=== PATIENT | female | born 1990 ===

== ENCOUNTER 2016-10-09 12:04 | Emergency (ER) | payer SELFPAY ==
[2016-10-09] MEDS ORDERED: TYLENOL #3 PO ONE (16:18)
--- NOTE | 2016-10-09 16:22 | Emergency Department Report ---
ED General Adult HPI - General Chief complaint: Pain General Stated complaint: 19WKA BODY ACHES Time Seen by Provider: 10/09/16 16:10 Source: patient Mode of arrival: Ambulatory Limitations: No Limitations - History of Present Illness Initial comments: 26-year-old -[place] female 5. Para 4 with one miscarriage she is 19 weeks comes in for complaint of body aches and back pain. Patient denies any vaginal bleeding or abdominal pain no fever no chills no nausea no vomiting denies any trauma or hematuria. Patient reports that she did not talk to her OB. Patient did not take anything for the pain. Patient has no other medical history. -: Sudden - Related Data Previous Rx's Medication Instructions Recorded Last Taken Type Vit-Fe Fumar-FA [ 1 tab PO QDAY #90 tablet 04/17/15 04/29/15 09 :00 Rx Vitamin] Allergies Allergy/AdvReac Type Severity Reaction Status Date / Time No Known Allergies Allergy Verified 04/29/15 13:05 ED Review of Systems ROS: Stated complaint: 19WKA BODY ACHES Other details as noted in HPI Constitutional: denies: chills, fever Eyes: denies: eye pain, eye discharge, vision change ENT: denies: ear pain, throat pain Respiratory: denies: cough, shortness of breath, wheezing Cardiovascular: denies: chest pain, palpitations Gastrointestinal: denies: abdominal pain, nausea, diarrhea Genitourinary: dysuria Musculoskeletal: back pain (lower back) ED Past Medical Hx - Past Medical History Previous Medical History?: Yes Additional medical history: Graves Disease, Vaginal delivery x 4, 1 miscarriage - Surgical History Past Surgical History?: No - Social History Smoking Status: Never Smoker Substance Use Type: Prescribed - Medications Home Medications: Home Medications Medication Instructions Recorded Confirmed Last Taken Type Vit-Fe Fumar-FA [ 1 tab PO QDAY #90 tablet 04/17/15 04/29/15 09:00 Rx Vitamin] ED Physical Exam - General Limitations: No Limitations General appearance: alert, in no apparent distress - Head Head exam: Present: atraumatic, normocephalic - Eye Eye exam: Present: normal appearance, PERRL, EOMI - ENT ENT exam: Present: mucous membranes moist - Back Exam Back exam: Present: normal inspection, full ROM. Absent: CVA tenderness (R), CVA tenderness (L), muscle spasm - Neurological Exam Neurological exam: Present: alert, oriented X3, normal gait - Psychiatric Psychiatric exam: Present: normal affect, normal mood - Skin Skin exam: Present: warm, dry, intact, normal color ED Course Vital Signs 10/09/16 10/09/16 12:40 16:44 Temperature 98.1 F Pulse Rate 89 Respiratory 20 18 Rate Blood Pressure 105/67 O2 Sat by Pulse 100 Oximetry - Reevaluation(s) Reevaluation #1: 10/09/16 17:41 Patient's been reevaluated by this provider. Patient reports that she still suffering from back pain UA was negative for urinary tract infection. We will order an ultrasound for further evaluation. Discuss patient. ED Medical Decision Making - Radiology Data Radiology results: report reviewed, image reviewed FINAL REPORT PROCEDURE: US OB T gt; = 14 WEEKS FETUS TECHNIQUE: Real-time transabdominal sonography of the uterus, placenta, amniotic fluid, adnexa, and fetus was performed with image documentation. Measurements were obtained to determine age/size. M-mode Doppler was used to document heartbeat. CPT 63739 HISTORY: 19 weeks. Low back pain with negative urinalysis. COMPARISON: No prior studies are available for comparison. FINDINGS: LMP: 05/26/2016. Clinical age: 19 weeks 3 days. EDC: 03/02/2017. GENERAL: IUP: Single living intrauterine . Position: Breech. Placental position: Anterior, grade 0, without previa. Amniotic fluid volume: Normal. MATERNAL: Uterus: Within normal limits. Cervical length: 3.1 cm. Internal Os: Closed. FETUS: Heart rate and rhythm: 142 BPM, Regular. anatomic survey: Normal. Stomach, brain, kidneys, bladder, diaphragm, four-chamber heart, three-vessel cord, cord insertion, and spine visualized. MEASUREMENTS: BPD: 4.49 centimeters, 19 weeks 4 days HC: 17.62 centimeters, 20 weeks 1 day AC: 14.8 centimeters, 20 weeks 1 day FL: 3.17 centimeters, 19 weeks 6 days HC/AC: 1.19 Cephalic index: 77 Mean Gestational Age (composite criteria): 20 weeks 0 days. Estimated Weight: 326 grams. Interval growth: Appropriate. Estimated Due Date (earliest scan): 02/26/2017. IMPRESSION: Single intrauterine gestation at 20 weeks 0 days. Estimated due date: 02/26/2017. Normal survey with appropriate growth. Transcribed By: SUNNI Dictated By: CHENCHO MILES MD Electronically Authenticated By: CHENCHO MILES MD Signed Date/Time: 10/09/162058 DD/ 58 TD/TT: 10/09/162058 - Medical Decision Making Patient's been evaluated by this provider in fast track. Based on history and exam we will send out a urinalysis with urine culture we will treat patient's pain here in fast track for Tylenol 3. Patient verbalized understanding. Discussed with the patient that she will need to follow up with her OB provider. Your urinalysis was negative for any infection, her ultrasound was negative. A problems with the baby. Because you're limits your medication for pain. Advised to follow-up with her MANAGER HI. He can take Tylenol every 4-6 hours for pain. Critical care attestation.: If time is entered above; I have spent that time in minutes in the direct care of this critically ill patient, excluding procedure time. ED Disposition Clinical Impression: Back pain Qualifiers: Back pain location: low back pain Chronicity: acute Back pain laterality: bilateral Sciatica presence: without sciatica Qualified Code(s): M54.5 - Low back pain Qualifiers: Weeks of gestation: 20 weeks Qualified Code(s): Z3A.20 - 20 weeks gestation of Disposition: DISCHARGED TO HOME OR SELFCARE Is pt being admited?: No Does the pt Need Aspirin: No Condition: Stable Instructions: Back Pain (ED), Low Back Strain (ED), (ED) Additional Instructions: Very important. Call your MANAGER [facility] provider to see if they'll be willing to order anything else for pain. At this point Tylenol is the only medication at that ER providers recommended. Referrals: PRIMARY CAREMD [Primary Care Provider] - 3-5 Days Forms: Accompanied Note
[2016-10-09 16:35] LABS: Bilirubin,Urine NEG (Negative); Blood,Urine NEG (Negative); Ketones,Urine NEG (Negative); Leukocyte Esterase,Urine NEG (Negative); Mucus,Urine 2+ /HPF; Nitrite,Urine NEG (Negative); Protein,Urine <15 mg/dL mg/dL (Negative); Urobilinogen,Urine < 2.0 mg/dL (<2.0); WBC,Urine < 1.0 /HPF (0.0-6.0)
--- NOTE | 2016-10-09 20:02 | Ultrasound Report ---
FINAL REPORT PROCEDURE: US OB \T\gt; = 14 WEEKS FETUS TECHNIQUE: Real-time transabdominal sonography of the uterus, placenta, amniotic fluid, adnexa, and fetus was performed with image documentation. Measurements were obtained to determine age/size. M-mode Doppler was used to document heartbeat. CPT 97791 HISTORY: 19 weeks. Low back pain with negative urinalysis. COMPARISON: No prior studies are available for comparison. FINDINGS: LMP: 05/26/2016. Clinical age: 19 weeks 3 days. EDC: 03/02/2017. GENERAL: IUP: Single living intrauterine . Position: Breech. Placental position: Anterior, grade 0, without previa. Amniotic fluid volume: Normal. MATERNAL: Uterus: Within normal limits. Cervical length: 3.1 cm. Internal Os: Closed. FETUS: Heart rate and rhythm: 142 BPM, Regular. anatomic survey: Normal. Stomach, brain, kidneys, bladder, diaphragm, four-chamber heart, three-vessel cord, cord insertion, and spine visualized. MEASUREMENTS: BPD: 4.49 centimeters, 19 weeks 4 days HC: 17.62 centimeters, 20 weeks 1 day AC: 14.8 centimeters, 20 weeks 1 day FL: 3.17 centimeters, 19 weeks 6 days HC/AC: 1.19 Cephalic index: 77 Mean Gestational Age (composite criteria): 20 weeks 0 days. Estimated Weight: 326 grams. Interval growth: Appropriate. Estimated Due Date (earliest scan): 02/26/2017. IMPRESSION: Single intrauterine gestation at 20 weeks 0 days. Estimated due date: 02/26/2017. Normal survey with appropriate growth.
[2016-10-09 21:22] VITALS: BP 104/68
== END 2016-10-09 21:22 | disposition home or self-care (01) ==
LOC: ED 12:04
DX: O26.892 Other specified pregnancy related conditions, second trimester (principal); M54.5 Low back pain; O99.282 Endocrine, nutritional and metabolic diseases complicating pregnancy, second trimester; E05.00 Thyrotoxicosis with diffuse goiter without thyrotoxic crisis or storm; Z3A.20 20 weeks gestation of pregnancy
CPT/HCPCS: 76805; 81001; 87086; 99284

== ENCOUNTER 2017-02-21 05:59 | Inpatient (IN) | payer MEDICAID ==
--- NOTE | 2017-02-21 06:32 | History and Physical Report ---
History of Present Illness Date of examination: 02/21/17 (pt arrived via EMS Delivered immediately in LDR by Dr.L Aly) Date of admission: 02/21/17 06:21 History of present illness: EDC Confirmation: 03/02/2017 Gestational Age: 23 4/7 weeks Past History : 6 Term Births: 1 Premature Births: 2 Living Children: 3 Para: 3 Mult. Births: 0 Prev : 0 Prev. attempt? 0 Aborta: 2 Elect. Ab: 1 Spont. Ab: 1 Ectopics: 0 # 1 Delivery date: 12/16/2008 Weeks Gestation: 36 Delivery type: Hours of labor: 10 Anesthesia type: epidural Delivery location: [place] Inf[facility] Sex: Male weight: 6-8 Name: Arleenmdroc # 2 Delivery date: 2011 Delivery type: EAB # 3 Delivery date: 04/20/2014 Weeks Gestation: 36 Delivery type: Hours of labor: 10 Anesthesia type: epidural Delivery location: [place] Infant Sex: Male weight: 5-8 Name: DJ # 4 Delivery date: 2014 Weeks Gestation: 12 Delivery type: SAB Delivery location: [facility] Comments: D&C # 5 Delivery date: 11/23/2015 Weeks Gestation: 38 labor: no Delivery type: Hours of labor: 10 Anesthesia type: none Delivery location: [place] Infant Sex: Male weight: 6-8 Name: Jenna Past Medical History: Saba (2011) Past Surgical History: D&C: (2014) D&C: (2011) Family History Summary: Other family member - Has No Family History of Ovarvian Cancer - Lupus - Entered On: 11/07/2016 Other family member - Has No Family History of Colon Cancer - Lupus - Entered On : 11/07/2016 Other family member - Has No Family History of Breast Cancer - Lupus - Entered On: 11/07/2016 Other family member - Has Family History of Diabetes - Lupus - Entered On: 2016 Other family member - Has Family History of CVA or Stroke - Lupus - Entered On: 11/07/2016 Other family member - Has Family History of Coronary Heart Disease - Lupus - Entered On: 11/07/2016 Social History: engaged Patient is single Risk Factors: Smoked Tobacco Use: Never smoker Drug use: no HIV high-risk behavior: low risk Alcohol use: no Past Medical History Surgery (Non-ob gyn physician assistant): D&C: (2014) D&C: (2011) Abnormal PAP: negative Uterine Anomaly: negative Social Hx: engaged Patient is single Infection History Hx of STD: none HIV Risk Eval: low risk Hepatitis B Risk Eval: low risk Partner hx. of genital herpes: no Genetic History Congenital Heart Defect: Mom: no Dad: no Jessica Disease: Mom: no Dad: no Thalassemia Mom: no Dad: no Neural Tube Defect Mom: no Dad: no Down's Syndrome Mom: no Dad: no Ronald-Sachs Mom: no Dad: no Sickle Cell Disease/Trait Mom: no Dad: no Hemophilia Mom: no Dad: no Muscular Dystrophy Mom: no Dad: no Cystic Fibrosis Mom: no Dad: no [place] Chorea Mom: no Dad: no Mental Retardation Mom: no Dad: no Fragile X Mom: no Dad: no Other Genetic/Chromosomal Disorder Mom: no Dad: no Child w/other defect Mom: no Dad: no Enviromental Exposures Xray Exposure: no Medication, drug, or alcohol use since LMP: yes Chemical/Other Exposure: no Exposure to Cat Liter: no Hx of Parvovirus (Fifth Disease): no Current Allergies (reviewed today): No known allergies Laboratory Results Date/Time Collected: 11/07/2016 Routine Urinalysis Leukocytes: negative Nitrite: negative Urobilinogen: negative Protein: negative Blood: negative Ketone: negative Bilirubin: negative Glucose: negative Urine HCG: positive [place] WM: 2+ WBCs, Clue Cells present, Yeast absent, Trichomonas absent Review of Systems See HPI General Denies fever, chills, sweats, anorexia, fatigue, weakness, malaise, weight loss and sleep disorder. Complains of amenorrhea and pelvic pain. Denies vaginal discharge, incontinence, dysuria, hematuria, urinary frequency, menorrhagia, abnormal vaginal bleeding, genital sores, decreased libido, painful periods, painful sex, urinary urgency, hot flashes, vaginal dryness, vaginal itching and vaginal odor. CV Denies chest pains, palpitations, syncope, dyspnea on exertion, orthopnea, PND and peripheral edema. Resp Denies cough, dyspnea at rest, excessive sputum, hemoptysis, wheezing and pleurisy. GI Denies nausea, vomiting, diarrhea, constipation, change in bowel habits, abdominal pain, melena, hematochezia, jaundice, gas/bloating, indigestion/ heartburn, dysphagia and odynophagia. Breast Denies left breast lump, right breast lump, nipple discharge, bloody discharge from nipple, breast pain, abnormal mammogram and breast enlargement. Psych Denies depression, anxiety, irritability and mood swings. PHYSICAL EXAM HEENT: normocephalic, no lesions or deformities Neck/Thyroid: Silghtly enlarged thyroid .Tatoo(s) are present Skin no significant abnormal lesions or rashes Chest: respiratory effort normal, clear to auscultation Breasts: skin/areolae normal, no masses, no nipple discharge, no erythema/warmth /tenderness, and axillae normal. .Tatoo(s) are present CV: regular, normal S1-S2, no murmur, no rub, no gallop Abdomen: normal bowel sounds, soft, nontender, no HSM Musculoskeletal: grossly normal ROM in joints, no joint tenderness or muscle weakness Neuro: no gross anomalities Extremities: no clubbing, cyanosis, or edema QUALITY SYSTEM MANAGER Exams Vulva/Vagina: normal appearance, yellow discharge, lesions. No evidence of cystocele or rectocele. Cervix: No lesions; no cervical motion tenderness Uterus: enlarged uterus 24-26 weeks in size Adnexae: Unable to palpate due to uterine size Rectovaginal: exam defered Past History - Obstetrical History Expected Date of Delivery: 03/02/17 Actual Gestation: 38 Week(s) 5 Day(s) : 6 Para: 3 Hx # Term Pregnancies: 1 Number of Pregnancies: 2 Spontaneous Abortions: 1 Induced : 1 Number of Living Children: 3 Medications and Allergies Allergies Allergy/AdvReac Type Severity Reaction Status Date / Time No Known Allergies Allergy Verified 04/29/15 13:05 Home Medications Medication Instructions Recorded Confirmed Last Taken Type Vit-Fe Fumar-FA [ 1 tab PO QDAY #90 tablet 04/17/15 04/29/15 09:00 Rx Vitamin] - Physical Exam Breasts: Positive: deferred Cardiovascular: Regular rate, Normal S1, Normal S2 Abdomen: Positive: normal appearance, soft, normal bowel sounds. Negative: distention, tenderness Vulva: both: normal Vagina: Positive: normal moisture. Negative: discharge Cervix: Negative: lesion, discharge Uterus: Positive: normal size, normal contour Adnexa: both: normal Anus/Rectum: Positive: normal perianal skin, heme negative. Negative: rectal mass, hemorrhoids Extremities: Deep Tendon Reflex Grade: Normal +2 Results All other labs normal. Laboratory Data-Patient Name: RENE GASPAR Test Date Result Blood Type 07/20/2016 O Rh 07/20/2016 positive Antibody Screen negative Rubella 07/20/2016 IMMUNE Serology (RPR) 02/02/2017 NR HBsAg 07/20/2016 negative Hemoglobin 11/30/2016 9.0 Hematocrit 11/30/2016 28.3 Platelets 07/20/2016 262 Chlamydia DNA 02/02/2017 Negative GC DNA/Culture 02/02/2017 Urine Culture Group B Strep cult Negative PAP HIV 02/02/2017 Negative AFP/Quad Screen Glucola Test 3hr GTT (Fasting) 1 hr 2 hr 3 hr [facility]-Patient Name:RENE GASPAR Test Date Result Varicella Ab Sickle Cell PPD Fibronectin Cystic Fibrosis Parvovirus TSH 11/30/2016 104.800 Free T4 11/30/2016 0.76 Hepatitis C ALT AST Uric Acid Creatinine 24 hr Urine Protein SOILA Assessment and Plan Pt arrived by EMS Precipitous delivery immediately upon arrival to unit. in attendance. Called urgently to unit. On my arrival pt w/o complaint placenta had del complete and intact. Please see delivery for complete details. Pt does have Graves disease and is on Synthroid 200mcg Will continue PP - Patient Problems (1) Precipitous delivery, delivered (current hospitalization) Onset Date: ~02/21/17 Current Visit: Yes Status: Acute (2) Graves disease Current Visit: Yes Status: Acute (3) Single live Current Visit: Yes Status: Acute
--- NOTE | 2017-02-21 06:44 | Procedure Note ---
OB Delivery Note - Delivery Date of Delivery: 02/21/17 Surgeon: HENRY ALY (delivery) Merchandising Consultant: RYDER MAYO Estimated blood loss: 300cc - Vaginal Delivery presentation: vertex Delivery position: OA Intrapartum events: other(please specify) (Graves Disease; precipitous delivery) Delivery induction: none Delivery monitor: none Route of delivery: Delivery placenta: spontaneous Delivery cord: nuchal cord, 3 umbilical vessels Episiotomy: none Delivery laceration: none Anesthesia: none Delivery comments: pt arrived by EMS Immediate delivery in LDR Del attended by Dr.L. Aly live born female over intact perineum. CAN X 1 reduced. Cord blood obt Placenta and membrane del complete and intact, 3 vessel cord. 9/9, EBL 300 , Wgt 6-3 Pitocin IVFs. Mom and baby remain LDR stable. Placenta to pathology due to maternal Graves Disease. - A at 1 minute: 8 at 5 minutes: 9 Gender: Female (wgt 6-3)
[2017-02-21] MEDS ORDERED: MINERAL OIL PO PRN (06:48)
[2017-02-21] MEDS ORDERED: PITOCin/NS 20 UNIT/1000ML DRIP 20 UNITS/1,000 ML BAG IV SCH (07:00)
[2017-02-21] MEDS ORDERED: LACTATED RINGERS 1,000 ML IV SCH (07:00)
[2017-02-21] MEDS ORDERED: SODIUM CHLORIDE FLUSH SYRINGE 10 ML IV PRN (07:30)
[2017-02-21] MEDS ORDERED: TYLENOL PO PRN (07:30)
[2017-02-21] MEDS ORDERED: TUCKS PAD TP PRN (07:30)
[2017-02-21] MEDS ORDERED: BENADRYL PO PRN (07:30)
[2017-02-21] MEDS ORDERED: ZOFRAN IV PRN (07:30)
[2017-02-21] MEDS ORDERED: PHENERGAN PO PRN (07:30)
[2017-02-21 07:45] LABS: Hematocrit 24.9 % (30.3-42.9); Hemoglobin 7.8 gm/dl (10.1-14.3); Mean Corpuscular HGB Conc 31 % (30-34); Mean Corpuscular Volume 76 fl (79-97); Platelet Count 217 K/mm3 (140-440); Red Cell Distribution Width 18.1 % (13.2-15.2); White Blood Count 12.3 K/mm3 (4.5-11.0)
[2017-02-21 07:47] LABS: Mean Corpuscular Hemoglobin 24 pg (28-32)
[2017-02-21] MEDS: MOTRIN PO SCH ×2 (09:00→17:19)
[2017-02-21] MEDS ORDERED: LANSINOH TP PRN (09:00)
[2017-02-21] MEDS ORDERED: NORCO 5/325 PO PRN (09:00)
[2017-02-21] MEDS ORDERED: DULCOLAX PR PRN (10:00)
[2017-02-21 16:59] LABS: Hematocrit 22.4 % (30.3-42.9); Hemoglobin 6.8 gm/dl (10.1-14.3)
[2017-02-21] MEDS: FEOSOL PO SCH (17:18)
[2017-02-21] MEDS ORDERED: MILK OF MAGNESIA PO PRN (22:00)
[2017-02-22] MEDS: FEOSOL PO SCH ×2 (00:06→11:14)
[2017-02-22] MEDS: MOTRIN PO SCH ×2 (00:06→05:49)
[2017-02-22] MEDS ORDERED: SYNTHROID PO SCH (06:00)
[2017-02-22] MEDS ORDERED: BOOSTRIX IM ONE (06:00)
--- NOTE | 2017-02-22 07:27 | Discharge Summary ---
Providers - Providers Date of Admission: 02/21/17 06:00 Date of discharge: 02/22/17 (pt desires d/c ) Attending physician: JACKELINE PELAEZ Primary care physician: JACKELINE PELAEZ Hospitalization Reason for admission: active labor Delivery: Episiotomy: none Laceration: none Incision: normal Other procedures: none complications: none Discharge diagnosis: IUP at term delivered baby: female Hospital course: uncomplicated pt w/o complaint VSS FF below umb Lochia small Perineum intact H&H 02/01, chronic anemia Pt is asymptomatic Doing well s/p vag delivery. P: d/c today with instructions Depo prior to d/c RX provided for po iron, colace, motrin Pt encouraged to increase dietary iron, hydration. RTO 6 weeks. Condition at discharge: Good Disposition: DC-01 TO HOME OR SELFCARE - Discharge Diagnoses (1) Precipitous delivery, delivered (current hospitalization) Status: Resolved Comment: rto 6 weeks for PP care (2) Graves disease Status: Acute Comment: cont medication as prescribed F/U with Campaign Assistant with in 4 weeks of delivery. Plan - Discharge Medications Prescriptions: Docusate Sodium [Colace] 100 mg PO BID PRN #60 capsule PRN Reason: Constipation Ferrous Sulfate [Feosol 325 MG tab] 325 mg PO BID #60 tablet Ibuprofen [Motrin 800 MG tab] 800 mg PO TID PRN #30 tablet PRN Reason: Pain - Provider Discharge Summary Activity: routine, no sex for 6 weeks, no heavy lifting 4 weeks, no strenuous exercise Diet: routine Instructions: routine Additional instructions: [] Smoking cessation referral if applicable(refer to patient education folder for contact #) [] Refer to [facility] Booklet Call your doctor immediately for: * Fever > 100.5 * Heavy vaginal bleeding ( >1 pad per hour) * Severe persistent headache * Shortness of breath * Reddened, hot, painful area to leg or breast * Drainage or odor from incision. * Keep incision clean and dry at all times and follow doctor's instructions regarding bathing/showering - Follow up plan Follow up: JACKELINE PELAEZ MD [Primary Care Provider] - 6 Weeks (Congratulations! Please call [phone] to schedule your visit in 6 weeks. Take medications as prescribed. Continue Levothyroxine medication as prescribed Follow up with Campaign Assistant with in 4 weeks of delivery. Call with concerns.)
[2017-02-22] MEDS ORDERED: DEPO-PROVERA (CONTRACEPTION) IM NR ×2 (08:00→15:00)
[2017-02-22] MEDS ORDERED: M-M-R II VACCINE SUB-Q ONE (11:00)
[2017-02-22 17:21] VITALS: BP 113/70
== END 2017-02-22 17:30 | disposition home or self-care (01) | DRG 775 ==
LOC: TRG 05:59 → LD 06:00 → TRG 06:19 → UNDOADMIN 06:21 → LD 06:21 → OB 10:13
PROVIDERS: ADMIT Obstetrics & Gynecology; ATTEND Obstetrics & Gynecology
PROC: 10E0XZZ Delivery of Products of Conception, External Approach (ICD-10-PCS; principal; 2017-02-21)
PROC: 3E0234Z Introduction of Serum, Toxoid and Vaccine into Muscle, Percutaneous Approach (ICD-10-PCS; 2017-02-21)
DX: O62.3 Precipitate labor (principal); O69.81X0 Labor and delivery complicated by cord around neck, without compression, not applicable or unspecified; O99.284 Endocrine, nutritional and metabolic diseases complicating childbirth; E05.00 Thyrotoxicosis with diffuse goiter without thyrotoxic crisis or storm; Z3A.38 38 weeks gestation of pregnancy; Z37.0 Single live birth
CPT/HCPCS: 36415; 85014; 85018; 85027; 86592; 86850; 86900; 86901; 88307; J1050; J2590